=== PATIENT | female | born 2000 | race Two or more races ===

== ENCOUNTER 2023-05-23 17:03 | Emergency (ER) | payer OTHER ==
[~2023-05-23] VITALS: Ht 167.6 cm; Wt 98.4 kg
[2023-05-23] MEDS ORDERED: LEVOTHYROXINE25 MC1 PO (18:12)
[2023-05-23] MEDS ORDERED: METOCLOPRAMIDE HCL 5 MG/ML VIAL IM STA (18:33)
[2023-05-23] MEDS ORDERED: RINGERS SOLUTION,LACTATED 1,000 ML IV STA (18:33)
[2023-05-23] MEDS ORDERED: FAMOtidine 10 MG/ML (4ML VIAL) IV PUSH STA (18:34)
[2023-05-23] MEDS ORDERED: ONDANSETRON HCL 2 MG/ML VIAL IV STA (18:34)
[2023-05-23 18:52] LABS: HEMATOCRIT 39.4 % (36.0-45.00); HEMOGLOBIN 12.8 g/dL (12.0-15.00); MEAN CELL VOLUME 71.1 fL (80.00-100.00); MEAN CORPUSCULAR HEMOGLOBIN 23.1 pg (27.00-32.0); MEAN CORPUSCULAR HGB CONC 32.5 g/dl (32.0-36.0); PLATELET COUNT 337 K/uL (150-450); RED BLOOD COUNT 5.54 M/uL (4.00-6.00); RED CELL DISTRIBUTION WIDTH 15.9 % (11.5-14.5)
[2023-05-23 19:13] LABS: CALCIUM 9.6 mg/dL (8.5-10.1); CREATININE SERUM 0.62 mg/dL (0.55-1.02); GFR 118.26; POTASSIUM 3.72 mEq/L (3.5-5.1)
== END 2023-05-23 20:24 | disposition home or self-care (01) ==
LOC: ER 17:04
DX: O21.0 Mild hyperemesis gravidarum (principal); Z3A.09 9 weeks gestation of pregnancy; Z91.013 Allergy to seafood

== ENCOUNTER 2023-08-07 10:07 | Outpatient (CLI) | payer OTHER ==
[~2023-08-07 10:07] MED LIST: LEVOTHYROXINE25 MC1 PO
== END 2023-08-07 10:08 | disposition home or self-care (01) ==
LOC: PRENATAL 10:07
PROVIDERS: ATTEND Obstetrics & Gynecology Maternal & Fetal Medicine
DX: O35.9XX0 Maternal care for (suspected) fetal abnormality and damage, unspecified, not applicable or unspecified (principal); O35.3XX0 Maternal care for (suspected) damage to fetus from viral disease in mother, not applicable or unspecified; O44.00 Complete placenta previa NOS or without hemorrhage, unspecified trimester; Z3A.20 20 weeks gestation of pregnancy

== ENCOUNTER 2023-09-04 10:32 | Outpatient (CLI) | payer OTHER | END 2023-09-04 10:33 | disposition home or self-care (01) | LOC: PRENATAL 10:32 | PROVIDERS: ATTEND Obstetrics & Gynecology Maternal & Fetal Medicine | DX: O26.842 Uterine size-date discrepancy, second trimester (principal); O16.2 Unspecified maternal hypertension, second trimester; O99.282 Endocrine, nutritional and metabolic diseases complicating pregnancy, second trimester; O26.872 Cervical shortening, second trimester; O99.012 Anemia complicating pregnancy, second trimester; Z3A.24 24 weeks gestation of pregnancy ==

== ENCOUNTER 2023-10-04 09:22 | Outpatient (CLI) | payer OTHER | END 2023-10-04 09:23 | disposition home or self-care (01) | LOC: PRENATAL 09:22 | PROVIDERS: ATTEND Obstetrics & Gynecology Maternal & Fetal Medicine | DX: O26.849 Uterine size-date discrepancy, unspecified trimester (principal); O99.019 Anemia complicating pregnancy, unspecified trimester; O99.280 Endocrine, nutritional and metabolic diseases complicating pregnancy, unspecified trimester; Z3A.30 30 weeks gestation of pregnancy ==

== ENCOUNTER → 2023-11-12 09:00 | Outpatient (CLI) | payer OTHER | END | disposition home or self-care (01) | LOC: PRENATAL 09:00 | PROVIDERS: ATTEND Obstetrics & Gynecology Maternal & Fetal Medicine | DX: O26.849 Uterine size-date discrepancy, unspecified trimester (principal); O36.8199 Decreased fetal movements, unspecified trimester, other fetus; O10.019 Pre-existing essential hypertension complicating pregnancy, unspecified trimester; O99.280 Endocrine, nutritional and metabolic diseases complicating pregnancy, unspecified trimester; Z3A.34 34 weeks gestation of pregnancy ==

== ENCOUNTER 2023-12-13 13:00 | Inpatient (IN) | payer OTHER ==
[~2023-12-13] VITALS: Ht 170.2 cm; Wt 109.3 kg
[2023-12-17 07:56] VITALS: BP 133/84
[2023-12-17] MEDS ORDERED: OXYTOCIN 500 ML IV SCH (08:15)
[2023-12-17] MEDS ORDERED: LEVOTHYROXINE25 MCG PO (09:06)
[2023-12-17] MEDS ORDERED: LABETALOL HCL100 MG PO (09:06)
[2023-12-17] MEDS ORDERED: PRENATAL CAPLE1 EAC1 PO (09:06)
[2023-12-17] MEDS ORDERED: IRON240 MG PO (09:07)
[2023-12-17] MEDS ORDERED: RINGERS SOLUTION,LACTATED 1,000 ML IV SCH (09:15)
[2023-12-17 09:18] LABS: URINE APPEARANCE Clear; URINE BILIRRUBIN Negative (NEGATIVE); URINE BLOOD Negative; URINE COLOR Yellow; URINE GLUCOSE Negative (NEGATIVE); URINE KETONE Negative (NEGATIVE); URINE LEUKOCYTE Trace; URINE NITRATE Negative; URINE PROTEIN Negative (NEGATIVE); URINE UROBILINOGEN 0.2 E.U./dl
[2023-12-17 09:19] LABS: URINE BACTERIA 895.7 uL (0.0-1933); URINE EPITHELIAL CELLS 35.3 uL (0.0-38.8); URINE WBC 26.4 uL (0.0-23.2)
[2023-12-17 09:23] LABS: URINE CAST 0.15 uL (0.0-1.40); URINE RBC 1.6 uL (0.0-20.8)
[2023-12-17 09:34] LABS: HEMOGLOBIN 10.5 g/dL (12.0-15.00); PLATELET COUNT 352 K/uL (150-450); RED BLOOD COUNT 4.81 M/uL (4.00-6.00); RED CELL DISTRIBUTION WIDTH 15.6 % (11.5-14.5)
[2023-12-17 09:42] LABS: INR 0.95; PROTHROMBIN TIME 10.4 SECONDS (9.0-11.5)
[2023-12-17 09:44] LABS: MEAN CELL VOLUME 68.6 fL (80.00-100.00)
[2023-12-17 10:04] LABS: ALBUMIN 2.8 gm/dL (3.4-5.0); BILIRUBIN TOTAL 0.22 mg/dL (0.3-1.2); CALCIUM 9.1 mg/dL (8.5-10.1); CREATININE SERUM 0.54 mg/dL (0.55-1.02); GFR 137.55; GLOBULINA 4.4 G/DL (2.4-3.5); POTASSIUM 4.01 mEq/L (3.5-5.1); TOTAL PROTEIN 7.2 gm/dL (6.4-8.2)
[2023-12-17 11:15] VITALS: BP 140/91
[2023-12-17] MEDS ORDERED: MEPERIDINE HCL/PF 50 MG/ML VIAL IV ONE (11:15)
[2023-12-17] MEDS ORDERED: PROMETHAZINE HCL 50 MG/ML AMPUL IV NR (11:15)
[2023-12-17 15:56] VITALS: BP 140/97
[2023-12-17] MEDS ORDERED: LABETALOL HCL 100 MG TABLET PO SCH (19:13)
[2023-12-18] VITALS (7 sets, daily range): BP systolic 119–137; BP diastolic 63–84
[2023-12-18] MEDS ORDERED: OXYTOCIN 1,000 ML IV SCH (00:45)
[2023-12-18] MEDS ORDERED: CHLORHEXIDINE GLUCONATE 120 ML BOTTLE TP SCH (00:45)
[2023-12-18] MEDS ORDERED: IBUprofen 400 MG TABLET PO PRN (00:45)
[2023-12-18] MEDS ORDERED: LIDOCAINE HCL 1% 10ML VIAL PERCUT ONE (02:30)
[2023-12-18] MEDS ORDERED: ERYTHROMYCIN BASE OPHT 1GM EACH TUBE OP ONE (02:30)
[2023-12-18 06:57] LABS: HEMATOCRIT 32.2 % (36.0-45.00); HEMOGLOBIN 10.2 g/dL (12.0-15.00); MEAN CORPUSCULAR HEMOGLOBIN 21.7 pg (27.00-32.0); MEAN CORPUSCULAR HGB CONC 31.6 g/dl (32.0-36.0); PLATELET COUNT 417 K/uL (150-450); RED CELL DISTRIBUTION WIDTH 15.7 % (11.5-14.5)
[2023-12-18 07:08] LABS: MEAN CELL VOLUME 68.6 fL (80.00-100.00)
[2023-12-18] MEDS ORDERED: MEASLES,MUMPS,RUBELLA VACC/PF 1 VIAL VIAL SUBCUTANEO ONE (07:45)
[2023-12-18] MEDS ORDERED: LEVOTHYROXINE SODIUM 25 MCG TABLET PO SCH (09:00)
[2023-12-18] MEDS ORDERED: PNV,CALCIUM 72/IRON/FOLIC ACID 1 TAB TABLET PO SCH (09:00)
[2023-12-18] MEDS ORDERED: BENZOCAINE/MENTHOL 90 ML BOTTLE TOP SCH (09:00)
[2023-12-18] MEDS ORDERED: LABETALOL HCL 100 MG TABLET PO PRN (17:47)
[2023-12-19 00:27] VITALS: BP 119/74
[2023-12-19 09:00] VITALS: BP 121/72
[2023-12-19 16:00] VITALS: BP 127/79
[2023-12-20 00:57] VITALS: BP 129/87
[2023-12-20 09:00] VITALS: BP 134/82
== END 2023-12-20 14:03 | disposition home or self-care (01) | DRG 806 ==
LOC: LDR 12-17 05:35 → OB/GYN 12-17 05:35 → LDR 12-17 06:15 → OB/GYN 12-18 02:28 → LDR 12-22 13:00
PROVIDERS: Obstetrics & Gynecology; ADMIT Student in an Organized Health Care Education/Training Program; ATTEND Student in an Organized Health Care Education/Training Program
PROC: 4A1HXCZ Monitoring of Products of Conception, Cardiac Rate, External Approach (ICD-10-PCS; 2023-12-17)
PROC: 10D07Z6 Extraction of Products of Conception, Vacuum, Via Natural or Artificial Opening (ICD-10-PCS; principal; 2023-12-18)
PROC: 3E033VJ Introduction of Other Hormone into Peripheral Vein, Percutaneous Approach (ICD-10-PCS; 2023-12-18)
PROC: 0W8NXZZ Division of Female Perineum, External Approach (ICD-10-PCS; 2023-12-18)
DX: O66.0 Obstructed labor due to shoulder dystocia (principal); O10.02 Pre-existing essential hypertension complicating childbirth; Z37.0 Single live birth; O66.5 Attempted application of vacuum extractor and forceps; O21.0 Mild hyperemesis gravidarum; Z3A.39 39 weeks gestation of pregnancy; Z20.822 Contact with and (suspected) exposure to COVID-19